=== PATIENT | female | born 1990 | race Caucasian/White ===

== ENCOUNTER 2023-06-20 00:34 | Emergency (ER) | payer MEDICAID ==
[~2023-06-20] VITALS: Ht 165.1 cm; Wt 61.2 kg
[2023-06-20] MEDS ORDERED: methylPREDNISolone SOD SUCC 125 MG/2ML VIAL ONE (01:18)
[2023-06-20] MEDS ORDERED: FAMOTIDINE/PF INJ 20 MG/2 ML VIAL IV ONE ×2 (01:19→01:30)
[2023-06-20] MEDS ORDERED: methylPREDNISolone SOD SUCC 125 MG/2ML VIAL IV ONE (01:30)
[2023-06-20] MEDS ORDERED: FAMO20TA8 PO (02:17)
[2023-06-20] MEDS ORDERED: PRED50TA PO (02:17)
[2023-06-20] MEDS ORDERED: EPIN0.3P3 IM (02:17)
[2023-06-20 03:37] VITALS: BP 121/75; TEMP 98.3; O2SAT 98
== END 2023-06-20 03:37 | disposition home or self-care (01) ==
LOC: ER 00:34
DX: L50.0 Allergic urticaria (principal)
CPT/HCPCS: 99284; 96374; 96375; J3490; J2930